=== PATIENT | female | born 1985 | race Caucasian/White ===

== ENCOUNTER 2022-02-10 11:20 | Emergency (ER) | payer BC ==
[~2022-02-10] VITALS: Ht 175.3 cm; Wt 79.4 kg
--- NOTE | 2022-02-10 11:30 | NUR ---
Pt was triaged and placed back in the ER waiting room. The ER is saturated and there are no open ER beds at this time.
--- NOTE | 2022-02-10 12:16 | NUR ---
Pt placed in a chair in the hallway.
--- NOTE | 2022-02-10 13:05 | NUR ---
Pt moved to room 4A, labs specimens drawn by manager [employer], CT pending. NAD noted at this time.
[2022-02-10 13:14] LABS: *BILIRUBIN,URIN NEGATIVE (NEGATIVE); *BLOOD, URINE 3+ (NEGATIVE); *CLARITY,URINE CLEAR (CLEAR); *COLOR,URINE YELLOW (YELLOW); *KETONES,URINE 3+ (NEGATIVE); *UROBILINOGEN,URINE 0.2 E.U./dl (NORMAL); LEUKOCYTE ESTERASE ,URINE TRACE (NEGATIVE); NITRITE, URINE NEGATIVE (NEGATIVE); PH,URINE 5.5 (5.0-8.0); UGLUCOSE NEGATIVE (NEGATIVE)
[2022-02-10 13:28] LABS: HEMATOCRIT 37.6 % (31.2-41.9); MEAN CORPUSCULAR VOLUME 78.8 fL (75.5-95.3); PLATELET COUNT (AUTO) 298 K/uL (179-408)
[2022-02-10 13:31] LABS: CREATININE 0.6 mg/dL (0.6-1.3); POTASSIUM 4.1 mmol/L (3.5-5.1)
[2022-02-10 13:36] LABS: BILIRUBIN,DIRECT 0.1 mg/dL (0.0-0.2); BILIRUBIN,TOTAL 0.3 mg/dL (0.2-1.0); TOTAL PROTEIN, SERUM 7.8 g/dL (6.4-8.2)
[2022-02-10 13:39] LABS: BACTERIA,URINE FEW /HPF (NONE SEEN); SQUAMOUS EPITHELIAL CELL,UR MODERATE /HPF (NONE SEEN); WBC,URINE 0-3 /HPF (0-3)
[2022-02-10] MEDS ORDERED: METR500T PO (14:48)
[2022-02-10] MEDS ORDERED: CIPR500T5 PO (14:48)
--- NOTE | 2022-02-10 14:58 | NUR ---
Patient discharged to home in stable condition. Written and verbal after care instructions given. Patient verbalizes understanding of instructions. Stressed follow up or return to ER for worsening s/s.
[2022-02-10 14:59] VITALS: BP 110/66
== END 2022-02-10 15:00 | disposition home or self-care (01) ==
LOC: ER 11:20
DX: K52.9 Noninfective gastroenteritis and colitis, unspecified (principal); K92.1 Melena; E03.9 Hypothyroidism, unspecified; Z88.0 Allergy status to penicillin
CPT/HCPCS: 36415; 83690; 85025; A4663